=== PATIENT | male | born 1995 ===

== ENCOUNTER 2017-03-16 19:11 | Emergency (ER) | payer BC ==
[2017-03-16 19:36] VITALS: BP 132/78
[2017-03-16 19:52] LABS: Hematocrit 42 % (42-52); Hemoglobin 14.2 g/dl (14.0-18.0); Mean Corpuscular HGB Conc 34 g/dl (31-36); Mean Corpuscular Hemoglobin 29 pg (27-31); Mean Corpuscular Volume 85 fL (80-94); Mean Platelet Volume 8 um3 (7.4-10.4); Red Blood Count 4.97 10^6/ul (4.0-5.4); Red Cell Distribution Width 14 % (10.5-15); White Blood Count 12.1 10^3/ul (3.5-10.8)
[2017-03-16 20:03] LABS: Albumin 4.6 g/dL (3.2-5.2); BUN/Creatinine Ratio 13.6 (8-20); Calcium 9.5 mg/dL (8.6-10.3); EGFR African American 154.7 (>60); EGFR Non-African American 120.3 (>60); Globulin 2.8 g/dL (2-4); Magnesium 2.2 mg/dL (1.9-2.7); Potassium 3.8 mmol/L (3.5-5.0); Total Bilirubin 0.3 mg/dL (0.2-1.0); Total Protein 7.4 g/dL (6.4-8.9)
[2017-03-16 20:09] LABS: Benzodiazepine Urine Screen None Detected (None Detect)
--- NOTE | 2017-03-16 20:12 | RAD ---
Indication: Right-sided weakness. CT of the brain was performed without IV contrast. Ventricular structures are midline. No midline shift is noted. The extra-axial spaces are unremarkable.. No other high or low density lesions are identified. There is no evidence of intracranial mass or hemorrhage present. Mastoid air cells and paranasal sinuses are otherwise unremarkable. IMPRESSION: No intracranial mass or hemorrhage is present.
--- NOTE | 2017-03-16 20:20 | RAD ---
Indication: Right-sided weakness. 2 views of the chest including dual energy PA views demonstrate no mediastinal shift. Heart is of normal size and configuration. Lung hernandez appear clear. IMPRESSION: No active cardiopulmonary disease is noted.
--- NOTE | 2017-03-16 23:59 | ED ---
Juma Graham Adam, scribed for Herminio Gonzalez on 03/16/17 at 1939 . Neurological HPI - HPI Summary HPI Summary: Pt is a 21 year old male presenting with right-sided weakness. He states that the right side of his body feels weaker than the left side and he doesn't feel normal. He states that he woke up at 08:00 this morning and was asymptomatic. He smoked marijuana 2 hours ago and the weakness set on sometime after that but he is unable to determine exactly when. He states that he did nothing outside of his ordinary routine today. Pt also reports feelings of anxiety which he states he has chronically. He also c/o some numbness in his lips. - History of Current Complaint Chief Complaint: EDNeurologicalDeficit Stated Complaint: RIGHT SIDED WEAKNESS Time Seen by Provider: 03/16/17 19:24 Hx Obtained From: Patient Onset/Duration: Gradual Onset, Started hours ago, Still Present Timing: Constant Onset Severity: Moderate Current Severity: Moderate Neurological Deficit Location: Facial, RUE, RLE Character: Weak Aggravating: Unknown - Possibly marijuana use Alleviating: Nothing Associated Signs and Symptoms: Positive: Numbness - Lips, Anxiety - Allergy/Home Medications Allergies/Adverse Reactions: Allergies Allergy/AdvReac Type Severity Reaction Status Date / Time No Known Allergies Allergy Verified 03/16/17 19:37 PMH/Surg Hx/FS Hx/Imm Hx Psychiatric History: Reports: Hx Anxiety Infectious Disease History: No Infectious Disease History: Denies: Traveled Outside the US in Last 30 Days - Family History Known Family History: Positive: None - Reviewed and noncontributory - Social History Occupation: Employed Full-time - Self-employed Lives: Alone Hx Substance Use: Yes Substance Use Type: Reports: Marijuana Review of Systems Negative: Fever Positive: Weakness - Right side, Numbness - Lips Positive: Anxious All Other Systems Reviewed And Are Negative: Yes Physical Exam Triage Information Reviewed: Yes Vital Signs On Initial Exam: Initial Vitals Temp Pulse Resp BP Pulse Ox 98.6 F 82 20 132/69 98 03/16/17 19:15 03/16/17 19:15 03/16/17 19:15 03/16/17 19:15 03/16/17 19:15 Vital Signs Reviewed: Yes Appearance: Positive: Well-Appearing, No Pain Distress Skin: Positive: Warm, Skin Color Reflects Adequate Perfusion, Dry Head/Face: Positive: Normal Head/Face Inspection Eyes: Positive: EOMI, DEJAH ENT: Positive: Normal ENT inspection Neck: Positive: Supple, Nontender Respiratory/Lung Sounds: Positive: Clear to Auscultation, Breath Sounds Present Cardiovascular: Positive: RRR, Pulses are Symmetrical in both Upper and Lower Extremities Abdomen Description: Positive: Nontender, Soft Bowel Sounds: Positive: Present Musculoskeletal: Positive: Normal, Strength/ROM Intact Neurological: Positive: Normal Diagnostics - Vital Signs Vital Signs Temp Pulse Resp BP Pulse Ox 03/16/17 19:15 98.6 F 82 20 132/69 98 - Laboratory Result Diagrams: 03/16/17 19:25 03/16/17 19:25 Lab Statement: Any lab studies that have been ordered have been reviewed, and results considered in the medical decision making process. - Radiology CXR Radiology Interpretation Completed By: Radiologist - IMPRESSION: NO ACTIVE CARDIOPULMONARY DISEASE IS NOTED. - CT BRAIN CT Interpretation Completed By: Radiologist - IMPRESSION: NO INTRACRANIAL MASS OR HEMORRHAGE IS PRESENT. - EKG 21:27 Cardiac Rate: NL - 74 BPM EKG Rhythm: Sinus Rhythm EKG Interpretation: Early repolarization. No ST elevation. - Additional Comments Diagnostic Additional Comments: Troponin I - 0.00 U Cannabinoids Screen - Presumptive Positive Course/Dx - Diagnoses Provider Diagnoses: Substance abuse, Anxiety Discharge - Discharge Plan Condition: Stable Disposition: HOME Patient Education Materials: Cannabis Abuse (ED), Anxiety (ED) Referrals: [facility] RODGER Kramer [Primary Care Provider] - Additional Instructions: Follow up with [facility]. The documentation as recorded by the Juma gagnon Adam accurately reflects the service I personally performed and the decisions made by , Herminio Gonzalez.
== END 2017-03-16 21:47 | disposition home or self-care (01) ==
LOC: ED 19:11
DX: F41.9 Anxiety disorder, unspecified (principal); F12.10 Cannabis abuse, uncomplicated
CPT/HCPCS: 36415; 70450; 71020; 80053; 80307; 83735; 84484; 85025; 85610; 85730; 86703; 93005; 99283

== ENCOUNTER 2018-10-21 16:33 | Inpatient (IN) | payer BC, OTHER ==
--- NOTE | 2018-10-21 17:04 | ED ---
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 He ran out of medications 5 days ago and sought medical attention to get his medications refilled. He saw his therapist today and she recommended hospitalization and had pt brought to the ED by ambulance. Nursing note by Dara Vale regarding collateral information provided by VELVET Lu at [employer] was reviewed, indicating SI with plan stated by pt to her. The sx are aggravated by resurfacing of past traumatic memories. He also requests to be evaluated for bipolar disorder and autism due to a Fhx of bipolar disorder. PMHx of depression and anxiety. He reports nightmares due to Bupropion use. Home Medications: Lexapro and Bupropion. - History Of Current Complaint Chief Complaint: EDMentalHealth Time Seen by Provider: 10/21/18 16:55 Hx Obtained From: Patient, Other: - [employer] Lu at [employer], per Dara Vale. Onset/Duration: Gradual Onset, Lasting Days - 4 days, Still Present Timing: Days Severity Initially: Moderate Severity Currently: Severe Character: Depressed Aggravating Factor(s): Other - Past memories, ran out of medications Alleviating Factor(s): Medication Associated Signs And Symptoms: Positive: Sleep Disturbance Related History: Positive For: Prior Psychiatric Issues Has Suicidal: Reports: Thoughts. Denies: With A Plan Has Homicidal: Denies: Thoughts, With A Plan - Allergies/Home Medications Allergies/Adverse Reactions: Allergies Allergy/AdvReac Type Severity Reaction Status Date / Time No Known Allergies Allergy Verified 03/16/17 19:37 Home Medications: Home Medications NK [No Home Medications Reported] 10/21/18 [History Confirmed 10/21/18] PMH/Surg Hx/FS Hx/Imm Hx Previously Healthy: No Endocrine/Hematology History: Reports: Hx Anemia Denies: Hx Diabetes Cardiovascular History: Denies: Hx Hypercholesterolemia, Hx Hypertension Respiratory History: Reports: Hx Asthma Sensory History: Denies: Hx Deafness Psychiatric History: Reports: Hx Anxiety - Cancer History Cancer Type, Location and Year: None reported - Surgical History Surgery Procedure, Year, and Place: None reported Infectious Disease History: No Infectious Disease History: Denies: Traveled Outside the US in Last 30 Days - Family History Known Family History: Positive: Other - Bipolar disorder- aunt - Social History Occupation: Student - [employer] Lives: Dormitory/Roommates - off campus Alcohol Use: None Hx Substance Use: Yes Substance Use Type: Reports: Marijuana Hx Tobacco Use: Yes Smoking Status (MU): Former Smoker - Stopped 3 years ago Review of Systems Constitutional: Other - Positive: Nighmares secondary to Bupropion use Cardiovascular: Negative Respiratory: Negative Gastrointestinal: Negative Positive: no symptoms reported Skin: Negative Neurological: Negative Psychological: Other - Positive: SI without plan All Other Systems Reviewed And Are Negative: Yes Physical Exam - Summary Physical Exam Summary: Appearance: Well-appearing, no pain distress, well-nourished Skin: Warm, color reflects adequate perfusion, dry Head: Normal Head/Face inspection, atraumatic Eyes: Conjunctiva clear ENT: Normal inspection Neck: Supple, no nodes, no JVD Respiratory: Lungs clear, normal breath sounds, no respiratory distress Cardio: RRR, No murmur, pulses normal, brisk capillary refill Abdomen: Soft, nontender Bowel sounds: Present Musculoskeletal: Strength Intact/ROM intact, no calf tenderness, no edema. Psychological: states SI without plan, no HI, pressured speech Neuro: Alert, muscle tone normal, no focal deficit Triage Information Reviewed: Yes Vital Signs On Initial Exam: Initial Vitals Temp Pulse Resp BP Pulse Ox 98.7 F 95 16 139/87 100 10/21/18 16:39 10/21/18 16:39 10/21/18 16:39 10/21/18 16:39 10/21/18 16:39 Vital Signs Reviewed: Yes Diagnostics - Vital Signs Vital Signs Temp Pulse Resp BP Pulse Ox 10/21/18 16:39 98.7 F 95 16 139/87 100 - Laboratory Result Diagrams: 10/21/18 17:13 10/21/18 17:13 Lab Statement: Any lab studies that have been ordered have been reviewed, and results considered in the medical decision making process. Re-Evaluation - Re-Evaluation First Eval Re-Evaluation Time: 17:50 - The pt is medically cleared for a MHE Change: Unchanged Second Eval Re-Evaluation Time: 18:26 - Pt remains calm, cooperative. Pt advised of MHE process. Change: Unchanged Course/Dx - Course Course Of Treatment: A 22 year-old M with a hx of depression and anxiety presents to the ED via EMS on 9.45 status after appointment with his [employer] therapist, with a CC of SI since 4 days ago, worsened today. The sx are aggravated by running out of his Lexapro and bupropion and resurfacing of past traumatic memories. A physical exam and labs are unremarkable. The pt was cleared for a mental health evaluation. Patient will be admitted to Dr. Barrera with a final Dx of depression and SI. Pt is agreeable with this plan. Allergies noted. - Differential Dx/Clinical Impression Differential Diagnosis/HQI/PQRI: Positive: Bipolar Disorder, Depression, Suicidal Ideation Provider Diagnosis: Suicidal ideations, Depression - Physician Notifications Discussed Care Of Patient With: Torito Barrera - per "M", psychiatric supervisor blueprinting and photocopy , voluntary admission Time Discussed With Above Provider: 21:15 Instructed by Provider To: Admit As Inpatient Discharge - Sign-Out/Discharge Documenting (check all that apply): Patient Departure - Admit - Discharge Plan Condition: Stable Disposition: PSYCHIATRIC FACILITY-[facility] [place] - Billing Disposition and Condition Condition: STABLE Disposition: Psychiatric Facility [facility] - Attestation Statements Document Initiated by Virginiaibe: Yes Documenting Scribe: Crystal Velásquez Provider For Whom Genny is Documenting (Include Credential): Dr. Sumaya Dennison MD Scribe Attestation: Crystal Graham scribed for Dr. Sumaya Dennison MD on 10/22/18 at 1546. Scribe Documentation Reviewed: Yes Provider Attestation: The documentation as recorded by the Crystal gagnon accurately reflects the service I personally performed and the decisions made by , Dr. Sumaya Dennison MD Status of Scribe Document: Viewed
[2018-10-21 17:23] LABS: ABS Basophils 0.1 10^3/ul (0-0.2); ABS Eosinophils 0.3 10^3/ul (0-0.6); ABS Lymphocytes 2.3 10^3/ul (1.0-4.8); ABS Monocytes 0.5 10^3/ul (0-0.8); ABS Neutrophils 4.8 10^3/ul (1.5-7.7); ABS Nucleated RBC 0 10^3/ul; Eosinophil % 3.6 %; Hematocrit 42 % (42-52); Hemoglobin 14.5 g/dl (14.0-18.0); Lymphocyte % 28.8 %; Mean Corpuscular HGB Conc 34 g/dl (31-36); Mean Corpuscular Hemoglobin 29 pg (27-31); Mean Corpuscular Volume 84 fL (80-94); Nucleated Red Blood Cells % 0.1; Platelet Count 365 10^3/ul (150-450); Red Blood Count 5.04 10^6/ul (4.00-5.40); Red Cell Distribution Width 14 % (10.5-15); White Blood Count 8.1 10^3/ul (3.5-10.8)
[2018-10-21 17:50] LABS: EGFR Non-African American 134.4 (>60)
[2018-10-22] MEDS ORDERED: Acetaminophen TAB* 325 MG PO PRN (00:23)
[2018-10-22] MEDS ORDERED: Al Hydrox/Mg Hydrox/Simet LIQ* 30 ML UDC PO PRN (00:23)
[2018-10-22] MEDS: Vitamin THERAPEUTIC TAB PO SCH (09:39)
[2018-10-22] MEDS: cloNIDine TAB* 0.1 MG PO SCH ×2 (13:51→21:07)
[2018-10-22] MEDS: Citalopram TAB* 20 MG PO SCH (13:53)
[2018-10-22] MEDS ORDERED: hydrOXYzine HCL TAB* 50 MG PO PRN (15:40)
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
--- NOTE | 2018-10-22 15:59 | PN ---
MHU: Group Therapy Note - Service Type Service Type: [id number] Group Psychotherapy - Group Participation Patient Participating in Group: Yes Level of Group Participation: Spontaneously Participate Relatedness to Group: Pilynded - John was participatory. he was clearly anxious throughout the group, but participated well, asking questions that were relevant to his own treatment.
[2018-10-23] MEDS: Citalopram TAB* 20 MG PO SCH (09:34)
[2018-10-23] MEDS: Vitamin THERAPEUTIC TAB PO SCH (09:34)
[2018-10-23] MEDS: cloNIDine TAB* 0.1 MG PO SCH ×2 (09:34→20:51)
--- NOTE | 2018-10-23 11:58 | PN ---
Subjective - Subjective Date of Service: 10/23/18 Service Type: [id number] [facility] care 15 min low complexity Subjective: Patient was seen by self, discussed with treatment team, chart was reviewed. Patient has been compliant with his medications, no reported side effects. Patient reports continued symptoms of worries, racing in his mind, hopelessness and questioning if he will be free from worries, difficulty sleeping last night that required Hydroxyzine. Patient sleeping has been fair after taking Vistaril. Patient eating has been fair. Patient has been cooperative with staff. Patient behavior has been in control. Patient mood was anxious and dysphoric and reports some improvement in racing thoughts. Patient has been reporting no suicidal or homicidal ideation. No psychotic symptoms of delusions or hallucinations. Patient was reportedly unable to sit still in groups, fidgety and restless. Objective - Appearance Appearance: Healthy Appearing Dysmorphic Features: No Hygiene: Normal Grooming: Fairly Well Kept - Behavior Psychomotor Activities: Abnormal-Increased Exhibits Abnormal Movement: No - Attitude and Relatedness Attitude and Relatedness: Cooperative Eye Contact: Fair - Speech Quality: Unpressured Latencies: Normal Quantity: Appropriate - Mood Patient's Decription of Mood: "Anxious" - Affect Observed Affect: Fair Affect Consistent with: Dysphoria - Thought Process Patient's Thought Process: Circumstantial Thought Content: No Passive Wish, No Suicidal Planning, No Homicidal Ideation, No Paranoid Ideation - Sensorium Experiencing Hallucinations: No, Sensorium is Clear Type of Hallucinations: Visual: No, Auditory: No, Command: No - Level of Consciousness Level of Consciousness: Alert Orientation: Yes Intact, Yes Orientated to Time, Yes Orientated to Place, Yes Orientated to Person - Impulse Control Impulse Control: Intact - Insight and Judgement Insight and Judgement: Fair - Group Participation Particating in Group Activities: Yes - Medication Management Medication Management Adherence: Yes Assessment - Assessment Merits Inpatient Hospitalization: For Immediate Safety, For Stabilization, For Discharge Planning Inpatient DSM-V Dx: F41.1 Clinical Impression: Patient with history of Cannabis Abuse, and Depressive Disorder. Patient currently admitted due to worsening of his depression, anxiety, racing thoughts , deficit in concentration, triggering suicidal thoughts. Patient has also struggled with his compliance to treatment and was off his routine medications for some time. Patient is a danger to self if discharged hence will be stabilized on inpatient unit with medication adjustments and therapy. MHU: Problem List - Patient Problems (1) Generalized anxiety disorder Current Visit: Yes Status: Acute Code(s): F41.1 - GENERALIZED ANXIETY DISORDER SNOMED Code(s): 54045657 (2) Cannabis abuse Current Visit: Yes Status: Acute Code(s): F12.10 - CANNABIS ABUSE, UNCOMPLICATED SNOMED Code(s): 42888913 (3) ADHD Current Visit: Yes Status: Acute Plan - Plan Treatment Plan: Name: TASHIA WALSH Birthdate: 1995 [id number] - Patient continues to be hospitalized due to recent suicidal thoughts with intent, anxiety and depression. - Patient's medications were adjusted after informed consent with increment in Clonidine 0.1 mg BID, Celexa was continued at 20 mg PO QAM and Seroquel was initiated at 25 mg bedtime to help augment effect of antidepressant, aide in sleep and anxiety/depression. - Patient will be monitored for improvement and side effects. Risk and benefits were discussed. - Patient was encouraged to continue his participation in the milieu, group and individual therapy. Medications: Current Medications Acetaminophen (Tylenol Tab*) 650 mg PO Q4H PRN PRN Reason: PAIN or TEMP > 101 F Al Hydrox/Mg Hydrox/Simethicone (Maalox Plus*) 30 ml PO Q4H PRN PRN Reason: INDIGESTION Citalopram Hydrobromide (Celexa Tab*) 20 mg PO DAILY [facility] Last Admin: 10/23/18 09:34 Dose: 20 mg Hydroxyzine HCl (Atarax Tab*) 50 mg PO Q6H PRN PRN Reason: Anxiety/sleep Multivitamins (Theragran Tab*) 1 tab PO DAILY [facility] Last Admin: 10/23/18 09:34 Dose: 1 tab Quetiapine Fumarate (Seroquel Tab*) 50 mg PO BEDTIME [facility]
[2018-10-23] MEDS ORDERED: QUEtiapine TAB* 25 MG PO SCH ×2 (21:00)
[2018-10-24 08:36] VITALS: BP 142/62
[2018-10-24] MEDS: Vitamin THERAPEUTIC TAB PO SCH (10:45)
[2018-10-24] MEDS: cloNIDine TAB* 0.1 MG PO SCH (10:45)
[2018-10-24] MEDS: Citalopram TAB* 20 MG PO SCH (10:45)
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
== END 2018-10-24 13:22 | disposition home or self-care (01) | DRG 756 ==
LOC: ED 16:33 → BSU 22:54
PROVIDERS: ADMIT Psychiatry & Neurology Psychiatry; ATTEND Psychiatry & Neurology Psychiatry
PROC: GZHZZZZ Group Psychotherapy (ICD-10-PCS; principal; 2018-10-22)
DX: F41.1 Generalized anxiety disorder (principal); R45.851 Suicidal ideations; F12.188 Cannabis abuse with other cannabis-induced disorder; J45.909 Unspecified asthma, uncomplicated; F90.9 Attention-deficit hyperactivity disorder, unspecified type; F32.9 Major depressive disorder, single episode, unspecified; Z91.14 Patient's other noncompliance with medication regimen; Z81.8 Family history of other mental and behavioral disorders; Z81.3 Family history of other psychoactive substance abuse and dependence; Z87.891 Personal history of nicotine dependence; Z23 Encounter for immunization
CPT/HCPCS: 36415; 80053; 80061; 80307; 80320; 80329; 80364; 83036; 84443; 85025; 90686; 90853; 99222; 99231; 99238; 99283; A9270-GY; G0480